=== PATIENT | female | born 1965 | race Hispanic/Latino ===

== ENCOUNTER 2023-04-05 19:33 | Emergency (ER) | payer SELFPAY ==
[~2023-04-05] VITALS: Ht 152.4 cm; Wt 56.0 kg
[2023-04-05] VITALS (11 sets, daily range): BP systolic 143–180; BP diastolic 78–101
[2023-04-05 20:17] LABS: BASO% 0.3 % (0-3); EOS% 1.3 % (0-8); HEMATOCRIT 42.1 % (37.0-47.0); HEMOGLOBIN 14.5 g/dl (12.0-16.0); IMMATURE GRANULOCYTES 0.1 % (0.0-5.0); LYMPH% 29.4 % (15-41); MEAN CELL VOLUME 90.1 fL CALC (80.0-100.0); MEAN CORPUSCULAR HGB CONC 34.4 g/dL CAL (32.0-36.0); MONO% 8.9 % (2-13); NEUT# 5.75 thou/uL (2.00-7.15); RED BLOOD COUNT 4.67 mill/uL (4.20-5.60); RED CELL DISTRI WIDTH 11.7 % (11.5-15.5)
[2023-04-05 20:27] LABS: ALBUMIN 3.9 g/dL (3.2-5.0); ALKALINE PHOSPHATASE 135 u/l (38-126); ANION GAP 15 (6-22 (CALC)); BILIRUBIN, TOTAL 0.6 mg/dL (0.02-1.3); BUN 13 mg/dL (7-17); BUN/CREATININE RATIO 16 (12-20 (CALC)); CARBON DIOXIDE 24 mmol/l (22-30); CHLORIDE 98 mmol/l (95-108); CREATININE 0.8 mg/dL (0.5-1.0); GFR FOR AFR.AMER. > 60 ML/MIN (>=60 (CALC)); GFR OTHER RACES > 60 ML/MIN (>=60 (CALC)); POTASSIUM 3.7 mmol/l (3.5-5.1); SGOT/AST 36 u/l (14-36); SODIUM 134 mmol/l (137-146); TOTAL PROTEIN 6.4 g/dL (6.3-8.2)
[2023-04-05 21:25] LABS: URINE BILIRUBIN - DIPSTICK Negative (NEGATIVE); URINE BLOOD DIPSTICK Negative (NEGATIVE); URINE GLUCOSE - DIPSTICK >=1000 mg/dL (NEGATIVE); URINE KETONE Negative (NEGATIVE); URINE LEUK ESTERASE Negative (NEGATIVE); URINE NITRITE - DIPSTICK Negative (Negative); URINE PROTEIN - DIPSTICK Negative (NEG-TRACE); URINE SPECIFIC GRAVITY 1.015; URINE UROBILINOGEN - DIPSTICK 0.2 E.U./dL (0.2)
[2023-04-05 21:26] LABS: URINE COLOR Yellow
[2023-04-05] MEDS ORDERED: AMARYL1 MG PO (21:50)
[2023-04-05] MEDS ORDERED: METFORMIN HCL500 M1 PO (21:50)
[2023-04-05] MEDS ORDERED: LISINOP/HCTZ1 TA1 PO (21:50)
== END 2023-04-05 22:18 | disposition home or self-care (01) | DRG 103 ==
LOC: ED 19:33
PROVIDERS: Family Medicine
DX: R51.9 Headache, unspecified (principal); I10 Essential (primary) hypertension; E11.9 Type 2 diabetes mellitus without complications; T46.5X6A Underdosing of other antihypertensive drugs, initial encounter; Z91.128 Patient's intentional underdosing of medication regimen for other reason

== ENCOUNTER 2023-05-14 09:15 | Emergency (ER) | payer OTHER ==
[2023-05-14] VITALS (10 sets, daily range): BP systolic 116–153; BP diastolic 77–118
[~2023-05-14] VITALS: Ht 152.4 cm; Wt 54.0 kg
[~2023-05-14 09:15] MED LIST: AMARYL1 MG PO; LISINOP/HCTZ1 TA1 PO; METFORMIN HCL500 M1 PO
[2023-05-14] MEDS ORDERED: NAPROXEN500 MG PO (11:13)
[2023-05-14] MEDS ORDERED: TRAMADOL HYDROC50 M1 PO (11:13)
== END 2023-05-14 11:38 | disposition home or self-care (01) | DRG 204 ==
LOC: ED 09:15
DX: R07.81 Pleurodynia (principal); I10 Essential (primary) hypertension; W01.0XXA Fall on same level from slipping, tripping and stumbling without subsequent striking against object, initial encounter; Y92.89 Other specified places as the place of occurrence of the external cause; Y99.0 Civilian activity done for income or pay

== ENCOUNTER 2023-07-10 19:07 | Emergency (ER) | payer OTHER ==
[~2023-07-10] VITALS: Ht 152.4 cm; Wt 56.2 kg
[~2023-07-10 19:07] MED LIST changes: +NAPROXEN500 MG PO; +TRAMADOL HYDROC50 M1 PO
[2023-07-10] MEDS ORDERED: KETOROLAC TROMETHAMINE 15 MG/ML SDV IV ONE (20:20)
[2023-07-10 20:41] LABS: BASO% 0.4 % (0-3); EOS% 1.2 % (0-8); HEMATOCRIT 39.3 % (37.0-47.0); HEMOGLOBIN 13.4 g/dl (12.0-16.0); IMMATURE GRANULOCYTES 0.5 % (0.0-5.0); LYMPH% 25.5 % (15-41); MEAN CELL VOLUME 90.1 fL CALC (80.0-100.0); MEAN CORPUSCULAR HGB 30.7 pG CALC (26.0-32.0); MEAN CORPUSCULAR HGB CONC 34.1 g/dL CAL (32.0-36.0); MONO% 7.9 % (2-13); NEUT# 7.1 thou/uL (2.00-7.15); NEUT% 64.5 % (42-76); RED BLOOD COUNT 4.36 mill/uL (4.20-5.60); RED CELL DISTRI WIDTH 12.2 % (11.5-15.5)
[2023-07-10 20:58] LABS: ALBUMIN 4.2 g/dL (3.2-5.0); ALKALINE PHOSPHATASE 90 u/l (38-126); ANION GAP 12 (6-22 (CALC)); BILIRUBIN, TOTAL 0.5 mg/dL (0.02-1.3); BUN 18 mg/dL (7-17); BUN/CREATININE RATIO 29 (12-20 (CALC)); CARBON DIOXIDE 28 mmol/l (22-30); CHLORIDE 106 mmol/l (95-108); CPK 54 u/l (30-135); CREATININE 0.6 mg/dL (0.5-1.0); GFR FOR AFR.AMER. > 60 ML/MIN (>=60 (CALC)); GFR OTHER RACES > 60 ML/MIN (>=60 (CALC)); LIPASE 58 u/l (23-300); POTASSIUM 3.9 mmol/l (3.5-5.1); SGOT/AST 27 u/l (14-36); TOTAL PROTEIN 6.8 g/dL (6.3-8.2)
[2023-07-10 21:04] LABS: SODIUM 142 mmol/l (137-146)
[2023-07-10 22:00] VITALS: BP 137/95
[2023-07-11 03:47] LABS: URINE BILIRUBIN - DIPSTICK Negative (NEGATIVE); URINE BLOOD DIPSTICK Trace-intact (NEGATIVE); URINE COLOR Yellow; URINE GLUCOSE - DIPSTICK Negative (NEGATIVE); URINE KETONE Negative (NEGATIVE); URINE LEUK ESTERASE Trace (NEGATIVE); URINE NITRITE - DIPSTICK Positive (Negative); URINE PROTEIN - DIPSTICK Negative (NEG-TRACE); URINE SPECIFIC GRAVITY 1.025; URINE UROBILINOGEN - DIPSTICK 0.2 E.U./dL (0.2)
[2023-07-11 03:53] LABS: URINE BACTERIA MANY hpf; URINE CALCIUM OXALATE CRYSTALS FEW lpf; URINE EPITHELIAL CELLS FEW EPI/hpf (0-FEW)
[2023-07-11 03:54] LABS: URINE AMORPH SEDIMENT FEW hpf (NONE-FEW)
== END 2023-07-11 01:29 | disposition left against medical advice (07) | DRG 392 ==
LOC: ED 19:07
PROVIDERS: Internal Medicine
DX: R10.32 Left lower quadrant pain (principal); I10 Essential (primary) hypertension; Z79.84 Long term (current) use of oral hypoglycemic drugs; Z53.29 Procedure and treatment not carried out because of patient's decision for other reasons